=== PATIENT | male | born 1980 | race Caucasian/White ===

== ENCOUNTER 2019-02-09 10:10 | Emergency (ER) | payer MEDICARE, MEDICAID ==
--- OUTSIDE RECORDS SUMMARY | 2019-02-09 11:25 | XMS REPORT | Continuity of Care Document ---
:1980 External Reference #:[id number] Author Name Kayleigh Wallace Care Team Providers Name Role Phone Max Riggs MD Primary Care Physician Unavailable Payers Date Identification Numbers Payment Provider Subscriber Policy Number: [id number] Medicare Fareed [place] Name: Medicare [address] PayID: [id number] [place] [address] Policy Number: [id number] Medicaid Fareed [place] Group Name: 1 1 [address] PayID: [id number] [place] [address] Effective: 1999 Policy Number: [id number] Medicare Fareed [place] Expires: 2018 Group Name: Medicare [address] PayID: [id number] [facility] [place] [address] Problems Active Problems Provider Date Epilepsy Mariaelena Abad M.D. Onset: 04/16/2016 Cerebral palsy Mariaelena Abad M.D. Onset: 04/16/2016 Hypoglycemia Onset: 04/11/2018 Nocturnal enuresis Onset: 04/11/2018 Mental retardation Onset: 04/21/2014 Anxiety state Onset: 04/21/2014 Osteoporosis Onset: 09/24/2011 Seizure Onset: 09/24/2011 Dysphagia Onset: 09/24/2011 Social History Type Date Description Comments Sex Unknown Lives With [facility] Residence ETOH Use Never used alcohol Tobacco Use Reviewed: 06/07/16 Patient has never smoked Recreational Drug Use Never Used Drugs Smoking Status Reviewed: 01/14/19 Patient has never smoked Allergies, Adverse Reactions, Alerts Active Allergies Reaction Severity Comments Date NKDA 04/16/2016 Chocolate 08/08/2018 Medications Active Medications SIG Qnty Indications Ordering Provider Date Anusol-HC apply to affected 60gm Max 12/30/2018 2.5% Cream areas 2-4 times MD Keely daily A & D Zinc Oxide apply to 42.500gm Max 12/30/2018 irritated MD Keely Cream buttocks daily and as needed Flublok Quadrivalent please administer 1units Max 05/21/2018 flu vaccine MD Keely 0.5ml Soln Prefill Syringe Divalproex Sodium 1 by mouth at 30tabs [facility], 01/13/2018 night in addition M.D. 250mg Tablets DR to 500mg Carbidopa-Levodopa 1 by mouth four 120tabs [facility], 04/30/2017 times a day N.P. 25-100mg Tablets Ativan 1 tabs 1 hr 6tabs F41.9 Max 08/08/2015 0.5mg Tablets before the dental MD Keely appt then 1 tabs just before the procedure if needed Prevident 5000 Plus use daily 1units Amx 12/30/2013 MD Keely 1.1% Cream Lamictal 1 tab by mouth 90tabs [facility], 09/24/2011 100mg every morning : 2 M.D. Tablets tab by mouth every night at bedtime Oscal 500/200 D-3 1 po tid 90tabs Max 09/24/2011 MD Keely [id number] Tablets Selsun Blue Dry twice weekly Unknown Scalp 1% Shampoo Mylanta every 4 hours as Unknown needed [id number] Suspension Lamotrigine 1 in in the 90tabs [facility], 100mg morning and 2 at M.D. Tablets hs. Miralax 17 gm every day Unknown [id number] Packet as needed Guaifenesin 5 milliliters by Unknown 100mg/5ML mouth every 4 Liquid hours as needed for cough Acetaminophen 2 tablets by Unknown 325mg mouth every 6 Tablets hours as needed for pain/fever Divalproex Sodium 1 by mouth in in 60tabs [facility], the morning and [address] in at night Oysco 500 1 tab tid Unknown 500mg Tablets Multi For Him once a day Unknown Capsules Colace 2 daily Unknown 100mg Capsules History Medications Azithromycin 2 now and 1 6tabs 465.9 Max Riggs 08/17/2014 - 250mg daily x 4 days 09/22/2014 Tablets Azithromycin 2 now and 1 6tabs 482.9 Max Riggs, 03/03/2013 - 250mg daily x 4 days 04/15/2013 Tablets Ativan 1 tabs 1 hr 6tabs 300.00 Max Riggs 07/21/2012 - 0.5mg before the 05/30/2015 Tablets dental appt then 1 tabs just before the procedure if needed Ativan 2 tabs 1 hour 3tabs Max Riggs 12/12/2011 - 0.5mg before appt, 05/30/2015 Tablets then 1 tab 1/2 hr befor appt Prevident 5000 use as directed Max Riggs 09/24/2011 - Booster 09/22/2014 1.1% Paste Sinemet 1 po tid Max Riggs 09/24/2011 - 25-100mg 05/30/2015 Tablets Carbidopa-Levodopa 1 by mouth 4 120tabs Mariaelena Abad, - ER times daily M.D. 04/30/2017 25-100mg Tablets ER Immunizations CPT Code Status Date Vaccine Lot # [id number] Given 06/28/2015 Tdap - Tetanus/Diptheria/Acellular Pertussis 26610 Given 05/20/2014 Influenza Virus 3Yrs & Over 02697 Given 04/15/2013 Influenza Virus 3Yrs & Over 31847 Given 03/31/2012 Influenza Virus 3Yrs & Over 84215 Given 05/24/2010 Influenza Virus 3Yrs & Over 88986 Given 05/10/2009 Influenza Virus 3Yrs & Over 68657 Given 09/21/2008 Hepatitis B Julissa Adoles For Intramuscular Use 16878 Given 05/17/2008 Influenza Virus 3Yrs & Over 72298 Given 03/11/2008 Hepatitis B Julissa Adoles For Intramuscular Use 54387 Given 02/10/2008 Hepatitis B Julissa Adoles For Intramuscular Use 71655 Given 05/26/2007 Influenza Virus 3Yrs & Over 99473 Given 06/26/2005 Tetanus And Diptheria (Td) For Adult Use Preservative Free Vital Signs Date Vital Result Comment 01/14/2019 9:23am Height 69 inches 5'9" Weight 171.56 lb BP Systolic 104 mmHg BP Diastolic 68 mmHg BMI (Body Mass Index) 25.3 kg/m2 12/30/2018 9:43am Weight 172.00 lb BP Systolic 102 mmHg BP Diastolic 60 mmHg 07/01/2018 10:12am Height 69 inches Weight 174.00 lb BP Systolic 100 mmHg BP Diastolic 70 mmHg BMI (Body Mass Index) 25.7 kg/m2 01/08/2018 9:20am Height 69 inches 5'9" Weight 163.12 lb Heart Rate 87 /min BP Systolic Sitting 114 mmHg BP Diastolic Sitting 70 mmHg Respiratory Rate 18 /min O2 % BldC Oximetry 99 % BMI (Body Mass Index) 24.1 kg/m2 11/28/2017 2:45pm Weight 164.00 lb 11/28/2017 2:52pm Weight 169.00 lb BP Systolic 130 mmHg BP Diastolic 70 mmHg 10/17/2017 4:42pm Weight 157.00 lb BP Systolic 108 mmHg BP Diastolic 78 mmHg 09/25/2017 9:40am Weight 154.00 lb BP Systolic 108 mmHg BP Diastolic 80 mmHg 06/25/2017 9:19am Height 71 inches Weight 150.00 lb Heart Rate 72 /min BP Systolic 102 mmHg BP Diastolic 72 mmHg Respiratory Rate 16 /min BMI (Body Mass Index) 20.9 kg/m2 06/14/2017 11:25am Weight 150.00 lb Body Temperature 97.0 F 04/10/2017 11:09am Weight 150.00 lb BP Systolic 110 mmHg BP Diastolic 70 mmHg 02/19/2017 10:02am Weight 151.00 lb BP Systolic 104 mmHg BP Diastolic 70 mmHg 11/08/2016 11:41am Weight 149.00 lb BP Systolic 100 mmHg BP Diastolic 70 mmHg 11/01/2016 11:36am Weight 150.00 lb BP Systolic 108 mmHg BP Diastolic 78 mmHg 10/15/2016 11:02am Height 69 inches 5'9" Weight 139.00 lb Heart Rate 89 /min BP Systolic Sitting 122 mmHg BP Diastolic Sitting 62 mmHg Respiratory Rate 18 /min Pain Level 0 BMI (Body Mass Index) 20.5 kg/m2 06/07/2016 3:58pm Height 71.50 inches Weight 141.00 lb Heart Rate 56 /min BP Systolic 90 mmHg BP Diastolic 70 mmHg Respiratory Rate 16 /min BMI (Body Mass Index) 19.4 kg/m2 05/03/2016 3:12pm Height 71.50 inches Weight 142.00 lb BP Systolic 100 mmHg BP Diastolic 70 mmHg BMI (Body Mass Index) 19.5 kg/m2 04/16/2016 10:27am Height 69 inches 5'9" Weight 134.00 lb Heart Rate 82 /min manual BP Systolic Sitting 124 mmHg BP Diastolic Sitting 82 mmHg BMI (Body Mass Index) 19.8 kg/m2 11/30/2015 3:11pm Weight 139.50 lb BP Systolic 100 mmHg BP Diastolic 70 mmHg 10/27/2015 3:01pm Weight 134.00 lb BP Systolic 90 mmHg BP Diastolic 68 mmHg 06/28/2015 2:48pm Weight 130.00 lb BP Systolic 100 mmHg BP Diastolic 72 mmHg 05/30/2015 1:34pm Weight 133.00 lb 05/10/2015 10:58am Weight 131.00 lb BP Systolic 96 mmHg BP Diastolic 80 mmHg 04/25/2015 3:19pm Height 71.75 inches Weight 130.50 lb Heart Rate 76 /min BP Systolic 90 mmHg BP Diastolic 66 mmHg Respiratory Rate 16 /min BMI (Body Mass Index) 17.8 kg/m2 01/27/2015 1:12pm Weight 130.00 lb BP Systolic 98 mmHg BP Diastolic 66 mmHg 10/27/2014 4:25pm Weight 139.00 lb BP Systolic 102 mmHg BP Diastolic 70 mmHg 09/22/2014 3:55pm Weight 144.00 lb BP Systolic 90 mmHg BP Diastolic 70 mmHg 08/17/2014 3:37pm Weight 142.00 lb BP Systolic 100 mmHg BP Diastolic 74 mmHg Body Temperature 99.7 F 04/21/2014 3:30pm Height 71 inches Weight 139.00 lb Heart Rate 64 /min BP Systolic 100 mmHg BP Diastolic 74 mmHg Respiratory Rate 16 /min BMI (Body Mass Index) 19.4 kg/m2 09/07/2013 3:06pm Weight 135.00 lb BP Systolic 96 mmHg BP Diastolic 70 mmHg 04/15/2013 4:19pm Height 70.25 inches Weight 136.00 lb Heart Rate 68 /min BP Systolic 100 mmHg BP Diastolic 70 mmHg Respiratory Rate 14 /min Body Temperature 97.7 F BMI (Body Mass Index) 19.4 kg/m2 03/10/2013 4:07pm Weight 133.00 lb BP Systolic 100 mmHg BP Diastolic 70 mmHg 03/03/2013 4:47pm Weight 133.50 lb BP Systolic 110 mmHg BP Diastolic 80 mmHg 02/25/2013 10:01am Weight 136.00 lb BP Systolic 100 mmHg BP Diastolic 88 mmHg 11/25/2012 2:06pm Weight 138.00 lb BP Systolic 98 mmHg BP Diastolic 75 mmHg 09/10/2012 2:06pm Weight 141.00 lb BP Systolic 104 mmHg BP Diastolic 60 mmHg 04/14/2012 2:21pm Height 70.25 inches Weight 141.00 lb Heart Rate 80 /min BP Systolic 110 mmHg BP Diastolic 70 mmHg Respiratory Rate 14 /min Body Temperature 97.2 F BMI (Body Mass Index) 20.1 kg/m2 01/28/2012 2:57pm Height 69 inches Weight 143.50 lb BP Systolic 100 mmHg BP Diastolic 64 mmHg BMI (Body Mass Index) 21.2 kg/m2 09/24/2011 1:46pm Height 69 inches Weight 142.00 lb BP Systolic 106 mmHg BP Diastolic 64 mmHg BMI (Body Mass Index) 21.0 kg/m2 Results Test Date Facility Test Result H/L Range Note Laboratory test 04/11/2017 N2N/CCD Import Aldosterone 9.4 ng/dL 0-30 1 , 2 finding Glycohemoglobin (A1c) 5.2 % 4.2-6.3 3 Luteinizing Hormone 5.2 mIU/mL 1.2-10.6 Reflex add FT3? Y Reflex add FT4? Y Thyroid Stim Hormone 2.01 uIU/mL 0.3-4.2 eAG 103 mg/dL PTH Intact W/Calcium 04/11/2017 N2N/CCD Import . (See Note) 4 Calcium 10.2 mg/dL 8.7-10.2 PTH,Intact 32 pg/mL 15-65 Imaging finding 11/08/2016 N2N/CCD Import Bone Density <pending> Laboratory test 11/05/2016 N2N/CCD Import Ferritin 122 ng/mL 26-388 5 finding Vitamin B12 And 11/05/2016 N2N/CCD Import Folic Acid 41.4 ng/mL High 3.1- 17.5 Folate Vitamin B12 1147 pg/mL High 193-986 CBS W/Automated Diff 11/05/2016 N2N/CCD Import Bas% 0.2 % 0-1.1 Baso # 0.01 K/uL 0-0.1 Eo% 0.9 % 0-6.6 Eos # 0.04 K/uL 0-0.5 Hematocrit 41.6 % 38-48 Hemoglobin 13.8 gm/dL 12.8-17 Lymph # 2.31 K/uL 1-4 Lymph % 49.1 % High 20-42 Mean Cell Volume 102.2 fl High 80-96 Mean Corpuscular HGB 33.9 pg High 27-33 Mean Corpuscular HGB Conc 33.2 g/dL 31.7-36 Mean Platelet Volume 9.7 fL 6.6-10.6 [place] # 0.46 K/uL 0-0.8 [place] % 9.8 % 0-10 Neut# 1.88 K/uL 1.8-7 Neut% 40.0 % 33-73 Platelet Count 164 K/uL 150-400 Red Blood Count 4.07 M/uL Low 4.2-5.8 Red Cell Distri Width %CV 12.6 % 11.6-15.8 Red Cell Distri Width SD 46.6 fl 36-51 White Blood Count 4.7 K/uL 3.4-10.5 Comprehensive Metabolic Panel 11/05/2016 N2N/CCD Import Alb/Glob 0.9 ratio Albumin 3.8 g/dL 3.4-5 Alkaline Phosphatase 50 U/L 45-117 Anion Gap 9 mEq/L 8-16 BUN 20 mg/dL High 7-18 BUN/Creat 22.2 ratio Bilirubin,Total 0.3 mg/dL 0.2-1 Calcium 9.2 mg/dL 8.5-10.1 Carbon Dioxide 29 mmol/L 21-32 Chloride 102 mmol/L 98-107 Creatinine 0.9 mg/dL 0.6-1.3 Globulin 4.1 g/dL 1.9-4.3 Glom Filtration Rate, Estimate >60 mL/min Glucose 81 mg/dL 74-106 If >60 mL/min 6 Potassium 3.9 mmol/L 3.5-5.1 SGPT/Alt 28 U/L 12-78 Sgot/Ast 19 U/L 15-37 Sodium 140 mmol/L 136-145 Total Protein 7.9 g/dL 6.4-8.2 Iron-Tibc-%Sat 11/05/2016 N2N/CCD Import Serum Iron 106 g/dL 65-175 Total Iron Binding Capacity 337 g/dL 250-450 Transferrin %Saturation 31 % 12-57 CBC Auto Diff 10/15/2016 [facility] White Blood 6.2 10^3/uL N 3.5-10.[address] [place] [address] [phone] Red Blood Count 4.13 10^6/uL N 4.0-5.4 Hemoglobin 13.8 g/dL Low 14.0-18.0 Hematocrit 41 % Low 42-52 Mean Corpuscular Volume 100 fL High 80-94 Mean Corpuscular Hemoglobin 34 pg High 27-31 Mean Corpuscular HGB Conc 33 g/dL N 31-36 Red Cell Distribution Width 14 % N 10.5-15 Platelet Count 176 10^3/uL N 150-450 Mean Platelet Volume 9 um3 N 7.4-10.4 Abs Neutrophils 2.3 10^3/uL N 1.5-7.7 Abs Lymphocytes 3.3 10^3/uL N 1.0-4.8 Abs Monocytes 0.6 10^3/uL N 0-0.8 Abs Eosinophils 0 10^3/uL N 0-0.6 Abs Basophils 0 10^3/uL N 0-0.2 Abs Nucleated RBC 0.01 10^3/uL N Granulocyte % 36.8 % Low 38-83 Lymphocyte % 53.2 % High 25-47 Monocyte % 9.2 % High 1-9 Eosinophil % 0.6 % N 0-6 Basophil % 0.2 % N 0-2 Nucleated Red Blood Cells % 0.1 N Comp Metabolic Panel 10/15/2016 [facility] Sodium 136 mmol/L N 133-[address] [place] [address] [phone] Potassium 4.2 mmol/L N 3.5-5.0 Chloride 100 mmol/L Low 101-111 Co2 Carbon Dioxide 30 mmol/L N 22-32 Anion Gap 6 mmol/L N 2-11 Glucose 80 mg/dL N 70-100 Blood Urea Nitrogen 24 mg/dL N 6-24 Creatinine 0.76 mg/dL N 0.67-1.17 BUN/Creatinine Ratio 31.6 High 8-20 Calcium 10.4 mg/dL High 8.6-10.3 Total Protein 8.1 g/dL N 6.4-8.9 Albumin 4.8 g/dL N 3.2-5.2 Globulin 3.3 g/dL N 2-4 Albumin/Globulin Ratio 1.5 N 1-3 Total Bilirubin 0.30 mg/dL N 0.2-1.0 Alkaline Phosphatase 43 U/L N 34-104 Alt 11 U/L N 7-52 Ast 21 U/L N 13-39 Egfr Non- 115.4 N >60 Egfr 148.4 N >60 7 Laboratory test 05/03/2016 N2N/CCD Import Glucose,Bedside 103 mg/dL 70- 110 8 finding Comprehensive 05/03/2016 N2N/CCD Import Alb/Glob 0.9 ratio 9 Metabolic Panel Albumin 3.7 g/dL 3.4-5 Alkaline Phosphatase 50 U/L 45-117 Anion Gap 6 mEq/L Low 8-16 BUN 20 mg/dL High 7-18 BUN/Creat 22.2 ratio Bilirubin,Total 0.3 mg/dL 0.2-1 Calcium 9.0 mg/dL 8.5-10.1 Carbon Dioxide 29 mmol/L 21-32 Chloride 107 mmol/L 98-107 Creatinine 0.9 mg/dL 0.6-1.3 Globulin 3.9 g/dL 1.9-4.3 Glom Filtration Rate, Estimate >60 mL/min Glucose 59 mg/dL Low 74-106 If >60 mL/min 10 Is Patient Fasting? Unknown Potassium 4.0 mmol/L 3.5-5.1 Reflex add FT3? Y Reflex add FT4? Y SGPT/Alt 26 U/L 12-78 Sgot/Ast 11 U/L Low 15-37 11 Sodium 142 mmol/L 136-145 Total Protein 7.6 g/dL 6.4-8.2 Laboratory test finding 05/03/2016 N2N/CCD Import Aot Request Test(s) added 12 Tests to be added: tsh, reflex ft4 <See Note> 13 Laboratory test finding 05/03/2016 N2N/CCD Import CK 67 U/L 39-308 Is Patient Fasting? Unknown Reflex add FT3? Y Reflex add FT4? Y Thyroid Stim Hormone 1.44 uIU/mL 0.3-4.2 Troponin-I < 0.015 ng/mL 14 Valproic Acid 86.8 ug/mL 50-100 CBS W/Automated Diff 05/03/2016 N2N/CCD Import Bas% 0.2 % 0.1-1 Baso # 0.01 K/uL Low 0.1-0.2 Eo% 1.0 % 0-5 Eos # 0.04 K/uL 0-0.5 Hematocrit 40.9 % 38-48 Hemoglobin 13.3 gm/dL 12.8-17 Lymph # 1.77 K/uL Low 1.8-7 Lymph % 42.1 % 17-56 Mean Cell Volume 102.0 fl High 80-96 Mean Corpuscular HGB 33.2 pg High 27-33 Mean Corpuscular HGB Conc 32.5 g/dL 31.7-36 Mean Platelet Volume 10.5 fL 6.6-10.6 [place] # 0.66 K/uL 0-0.8 [place] % 15.7 % High 0-10 Neut# 1.72 K/uL Low 1.8-7 Neut% 41.0 % 33-73 Platelet Count 150 K/uL 150-400 Red Blood Count 4.01 M/uL Low 4.2-5.8 Red Cell Distri Width %CV 12.9 % 11.6-15.8 Red Cell Distri Width SD 47.6 fl 36-51 White Blood Count 4.2 K/uL 3.4-10.5 Valproic Acid,Free + 06/14/2015 N2N/CCD Import Free Valproic 8.6 ug/mL 4 -12 15 Total Valproic Acid (Depakote),S 84 ug/mL 50-100 16 Comprehensive Metabolic Panel 05/25/2015 N2N/CCD Import Alb/Glob 1.0 ratio Albumin 3.9 g/dL 3.4-5 Alkaline Phosphatase 55 U/L 45-117 Anion Gap 3 mEq/L Low 8-16 BUN 17 mg/dL 7-18 BUN/Creat 18.8 ratio Bilirubin,Total 0.3 mg/dL 0.2-1 Calcium 9.3 mg/dL 8.5-10.1 Carbon Dioxide 30 mmol/L 21-32 Chloride 107 mmol/L 98-107 Creatinine 0.9 mg/dL 0.6-1.3 Globulin 3.8 g/dL 1.9-4.3 Glom Filtration Rate, Estimate >60 mL/min Glucose 106 mg/dL 74-106 If >60 mL/min 17 Potassium 3.9 mmol/L 3.5-5.1 SGPT/Alt 23 U/L 12-78 Sgot/Ast 12 U/L Low 15-37 18 Sodium 140 mmol/L 136-145 Total Protein 7.7 g/dL 6.4-8.2 CBC W/Automated Diff 05/25/2015 N2N/CCD Import Bas% 0.1 % 0.1-1 Baso # 0.01 K/uL Low 0.1-0.2 Eo% 0.1 % 0-5 Eos # 0.01 K/uL 0-0.5 Hematocrit 38.8 % 38-48 Hemoglobin 12.9 gm/dL 12.8-17 Lymph # 1.74 K/uL Low 1.8-7 Lymph % 16.9 % Low 17-56 Mean Cell Volume 97.7 fl High 80-96 Mean Corpuscular HGB 32.5 pg 27-33 Mean Corpuscular HGB Conc 33.2 g/dL 31.7-36 Mean Platelet Volume 10.6 fL 6.6-10.6 [place] # 0.85 K/uL High 0-0.8 [place] % 8.2 % 0-10 Neut# 7.71 K/uL High 1.8-7 Neut% 74.7 % High 33-73 Platelet Count 189 K/uL 150-400 Red Blood Count 3.97 M/uL Low 4.2-5.8 Red Cell Distri Width %CV 12.7 % 11.6-15.8 Red Cell Distri Width SD 45.0 fl 36-51 White Blood Count 10.3 K/uL 3.4-10.5 Laboratory test finding 05/25/2015 N2N/CCD Import CK 83 U/L 39-308 Magnesium 1.9 mg/dL 1.8-2.4 Phosphorous 1.7 mg/dL Low 2.5-4 Valproic Acid 48.5 ug/mL Low 50-100 Laboratory test 11/28/2013 N2N/CCD Import Lamotrigine 15.6 ug/mL 2-20 19 finding (Lamictal), Serum Valproic Acid 60.7 ug/mL 50-100 CBC 11/28/2013 N2N/CCD Import Hematocrit 41.9 % 38-48 Hemoglobin 14.0 gm/dL 12.8-17 Mean Cell Volume 99.3 fl High 80-96 Mean Corpuscular HGB 33.2 pg High 27-33 Mean Corpuscular HGB Conc 33.4 g/dL 31.7-36 Mean Platelet Volume 10.1 fL 6.6-10.6 Platelet Count 202 K/uL 150-400 Red Blood Count 4.22 M/uL 4.2-5.8 Red Cell Distri Width %CV 12.8 % 11.6-15.8 White Blood Count 5.7 K/uL 3.4-10.5 Liver Function Tests 11/28/2013 N2N/CCD Import Alb/Glob 1.0 ratio Albumin 4.1 g/dL 3.5-5 Alkaline Phosphatase 54 U/L 50-136 Bilirubin,Direct < 0.1 mg/dL Low 0.1-0.4 Bilirubin,Indirect 0.2 mg/dL 0-0.9 Bilirubin,Total 0.3 mg/dL 0.2-1.2 Globulin 4.2 g/dL 1.9-4.3 SGPT/Alt 24 U/L Low 30-65 Sgot/Ast 10 U/L Low 16-40 Total Protein 8.3 g/dL High 6.3-8 Laboratory test 05/01/2013 N2N/[employer] Import Lamotrigine 19.5 ug/mL 2-20 20 finding (Lamictal), Serum Valproic Acid 75.2 ug/mL 50-100 Laboratory test 03/26/2013 N2N/CCD Import Lamotrigine 19.4 ug/mL 2-20 21 finding (Lamictal), Serum Valproic Acid 111.1 ug/mL High 50-100 CBC 03/26/2013 N2N/CCD Import Hematocrit 44.2 % 38-48 Hemoglobin 14.4 gm/dL 12.8-17 Mean Cell Volume 102.8 fl High 80-96 Mean Corpuscular HGB 33.5 pg High 27-33 Mean Corpuscular HGB Conc 32.6 g/dL 31.7-36 Mean Platelet Volume 11.1 fL High 6.6-10.6 Platelet Count 153 K/uL 150-400 Red Blood Count 4.30 M/uL 4.2-5.8 Red Cell Distri Width %CV 13.1 % 11.6-15.8 White Blood Count 5.2 K/uL 3.4-10.5 Liver Function Tests 03/26/2013 N2N/CCD Import Alb/Glob 0.9 ratio Albumin 4.1 g/dL 3.5-5 Alkaline Phosphatase 55 U/L 50-136 Bilirubin,Direct 0.1 mg/dL 0.1-0.4 Bilirubin,Indirect 0.4 mg/dL 0-0.9 Bilirubin,Total 0.5 mg/dL 0.2-1.2 Globulin 4.7 g/dL High 1.9-4.3 SGPT/Alt 24 U/L Low 30-65 Sgot/Ast 14 U/L Low 16-40 Total Protein 8.8 g/dL High 6.3-8 CBC W/Automated Diff 10/20/2012 N2N/CCD Import Bas% 0.4 % 0.1-1 Baso # 0.02 K/uL Low 0.1-0.2 Eo% 1.1 % 0-5 Eos # 0.06 K/uL 0-0.5 Hematocrit 41.0 % 38-48 Hemoglobin 14.4 gm/dL 12.8-17 Lymph # 3.38 K/uL 1.2-4 Lymph % 61.2 % High 17-56 Mean Cell Volume 99.3 fl High 80-96 Mean Corpuscular HGB 34.9 pg High 27-33 Mean Corpuscular HGB Conc 35.1 g/dL 31.7-36 Mean Platelet Volume 10.0 fL 6.6-10.6 [place] # 0.47 K/uL 0-0.6 [place] % 8.5 % 0-10 Neut# 1.59 K/uL Low 1.8-7 Neut% 28.8 % Low 33-73 Platelet Count 177 K/uL 150-400 Red Blood Count 4.13 M/uL Low 4.2-5.8 Red Cell Distri Width %CV 13.0 % 11.6-15.8 Red Cell Distri Width SD 47.4 fl 36-51 White Blood Count 5.5 K/uL 3.4-10.5 Comprehensive Metabolic Panel 10/20/2012 N2N/CCD Import Alb/Glob 1.0 ratio Albumin 4.2 g/dL 3.5-5 Alkaline Phosphatase 61 U/L 50-136 Anion Gap 11 mEq/L 8-16 BUN 27 mg/dL High 5-23 BUN/Creat 30.0 ratio Bilirubin,Total 0.6 mg/dL 0.2-1.2 Calcium 9.9 mg/dL 8.5-10.1 Carbon Dioxide 32 mEq/L High 18-29 Chloride 102 mmol/L 98-107 Creatinine 0.9 mg/dL 0.5-1.4 Globulin 4.2 g/dL 1.9-4.3 Glom Filtration Rate, Estimate >60 mL/min Glucose 80 mg/dL 76-115 If >60 mL/min 22 Potassium 4.3 mmol/L 3.5-5.1 SGPT/Alt 27 U/L Low 30-65 Sgot/Ast 16 U/L 16-40 Sodium 141 mmol/L 136-145 Total Protein 8.4 g/dL High 6.3-8 LDL Cholesterol Profile 10/20/2012 N2N/CCD Import Cholesterol 158 mg/dL 120-200 HDL Cholesterol 70 mg/dL 29-83 LDL-Cholesterol 73 mg/dL 62-185 Triglycerides 75 mg/dL 16-231 Valproic Acid,Free + 10/20/2012 N2N/CCD Import Free Valproic 9.5 ug/mL 4 -12 23 Total Valproic Acid (Depakote),S 101 ug/mL High 50-100 24 Imaging finding 10/16/2011 N2N/CCD Import Dexa Scan, Axial Skeleton, < pending> One Or More Sites 1 E16.2 2 This test was developed and its performance characteristics determined by [facility]. It has not been cleared or approved by the Food and Drug Administration. 3 Elevated levels of HbA1c suggest the need for more aggressive treatment of glycemia. The [place] [employer] recommends that a primary goal of therapy should be a HbA1c of <7% and that physicians should re-evaluate the treatment regimen in patients with HbA1c values consistently >8%. 4 Interpretation Intact PTH Calcium (pg/mL) (mg/dL) Normal 15 - 65 8.6 - 10.2 Primary Hyperparathyroidism >65 >10.2 Secondary Hyperparathyroidism >65 <10.2 Non-Parathyroid Hypercalcemia <65 >10.2 Hypoparathyroidism <15 < 8.6 Non-Parathyroid Hypocalcemia 15 - 65 < 8.6 Performed at: RN - [facility] [address] [id number] Information Technology Intern: Marjorie Menchaca MD, Phone: [phone] Performed at: - [facility] [address] [id number] Information Technology Intern: Kyle Gómez MD, Phone: [phone] 5 M81.8 OSTEOPEROSIS W/OUT CURRENT FRACTURE 6 Note: Persistent reduction for 3 months or more in an eGFR <60 mL/min/1.73 m2 defines CKD. Patients with eGFR values >/=60 mL/min/1.73 m2 may also have CKD if evidence of persistent proteinuria is present. The original MDRD equation for estimated GFR is not valid for patients less than 18 years of age. Additional information may be found at www.kdoqi.org. 7 Because ethnic data is not always readily available, this report includes an eGFR for both -Americans and non- Americans. The National Kidney Disease Education Program (NKDEP) does not endorse the use of the MDRD equation for patients that are not between the ages of 18 and 70, are , have extremes of body size, muscle mass, or nutritional status, or are non- or non-. According to the National Kidney Foundation, irrespective of diagnosis, the stage of the disease is based on the level of kidney function: Stage Description GFR(mL/min/1.73 m(2)) 1 Kidney damage with normal or decreased GFR 90 2 Kidney damage with mild decrease in GFR 60-89 3 Moderate decrease in GFR 30-59 4 Severe decrease in GFR 15-29 5 Kidney failure <15 (or dialysis) 8 Charting This Result Notify Physician 9 LOW TEMP,CP,LATHARGIC 10 Note: Persistent reduction for 3 months or more in an eGFR <60 mL/min/1.73 m2 defines CKD. Patients with eGFR values >/=60 mL/min/1.73 m2 may also have CKD if evidence of persistent proteinuria is present. The original MDRD equation for estimated GFR is not valid for patients less than 18 years of age. Additional information may be found at www.kdoqi.org. 11 Values below the stated reference ranges of AST and ALT can be seen in normal populations. Clinical correlation is suggested. 12 Tests: tsh, reflex ft4 and t3 Instructions: 13 tsh, reflex ft4 and t3 14 0.0 - 0.045 ng/mL: Normal 0.046 - 0.5 ng/mL: Suggestive 0.6 - 1.5 ng/mL: Consistent 15 Detection Limit=0.5 16 Detection Limit=4 <4 indicates None Detected Toxicity may occur at levels of 100-500. Measurements of free unbound valproic acid may improve the assess- ment of clinical response. Performed at: - [facility] [address] [id number] Information Technology Intern: Marjorie Menchaca MD, Phone: [phone] Performed at: [address] [id number] Information Technology Intern: Kyle Gómez MD, Phone: [phone] 17 Note: Persistent reduction for 3 months or more in an eGFR <60 mL/min/1.73 m2 defines CKD. Patients with eGFR values >/=60 mL/min/1.73 m2 may also have CKD if evidence of persistent proteinuria is present. The original MDRD equation for estimated GFR is not valid for patients less than 18 years of age. Additional information may be found at www.kdoqi.org. 18 Values below the stated reference ranges of AST and ALT can be seen in normal populations. Clinical correlation is suggested. 19 Detection Limit=1.0 Performed at: [facility] [address] [id number] Information Technology Intern: Kyle Gómez MD, Phone: [phone] 20 Detection Limit=1.0 Performed at: [address] [id number] Information Technology Intern: Kyle Gómez MD, Phone: [phone] 21 Detection Limit=1.0 Performed at: [address] [id number] Information Technology Intern: Kyle Gómez MD, Phone: [phone] 22 Note: Persistent reduction for 3 months or more in an eGFR <60 mL/min/1.73 m2 defines CKD. Patients with eGFR values >/=60 mL/min/1.73 m2 may also have CKD if evidence of persistent proteinuria is present. The original MDRD equation for estimated GFR is not valid for patients less than 18 years of age. Additional information may be found at www.kdoqi.org. 23 Detection Limit=0.5 24 Detection Limit=4 <4 indicates None Detected Toxicity may occur at levels of 100-500. Measurements of free unbound valproic acid may improve the assess- ment of clinical response. Patient drug level exceeds published reference range. Evaluate clinically for signs of potential toxicity. Performed at: [facility] [id number] Information Technology Intern: Marjorie Menchaca MD, Phone: [phone] Performed at: [address] [id number] Information Technology Intern: Kyle Gómez MD, Phone: [phone] Procedures Date Code Description Status 06/14/2017 30261 Remove Impacted Cerumen Completed 04/24/2012 79578 Remove Impacted Cerumen Completed 03/21/2011 27623 Pure Tone-Air Condition Only Completed 08/23/2010 58612 Visual funct screen test, automated Completed 08/23/2010 85031 EKG Tracing & Interpretation Completed 02/07/2009 30548 Screening Vision Test Completed 02/07/2009 88215 Pure Tone-Air Condition Only Completed 12/10/2007 84680 Remove Impacted Cerumen Completed Encounters Type Date Location Provider Dx Diagnosis Office Visit 12/30/2018 [facility] Primary [facility] Max F41.9 Anxiety disorder, 9:30a MD Keely unspecified Office Visit 01/08/2018 [place]/Nathan Crow G80.9 Cerebral palsy, 9:30a Neurologic Serv Agustín Milian unspecified [facility] G40.909 Epilepsy, unsp, not intractable, without status epilepticus Office Visit 10/15/2016 Kassie [email or web address] Cerebral palsy, 10:45a Neurologic Serv Of Maicol Abad unspecified Neurourologist G40.909 Epilepsy, unsp, not intractable, without status epilepticus Office Visit 04/16/2016 Kassie Weeks80.9 Cerebral palsy, 10:15a Neurologic Serv Of Maicol Abad unspecified Neurourologist G40.909 Epilepsy, unsp, not intractable, without status epilepticus Z79.899 Other assisted (current) drug therapy Plan of Treatment Future Appointment(s):01/20/2020 9:15 am - James Crow M.D. at [facility] Neurologic Serv [facility]07/06/2019 10:00 am - Max Riggs MD at [facility] Primary [facility]01/14/2019 - James Crow M.D.G80.9 Cerebral palsy, unspecifiedFollow up:Follow up in 1 yearG40.909 Epilepsy, unspecified, not intractable, without status [id number] Anxiety disorder, unspecified
[2019-02-09 11:34] VITALS: BP 119/70
--- NOTE | 2019-02-09 11:53 | UC ---
Lower Extremity/Ankle HPI - HPI Summary HPI Summary: Patient presents to urgent care with management long term. Patient with cerebral palsy and decreased verbal interaction. Patient noted last night to have bruising of his right second toe. No known trauma. Patient last night reported hurt. Patient states today he is a little bit of discomfort was noted to be favoring. No analgesia given. No known trauma. No ankle knee pain no fevers no chills no open wounds no bleeding no other recent injuries. Patient' s medication list reviewed. Patient does have Tylenol when necessary but has not been administered - History of Current Complaint Chief Complaint: UCGeneralIllness Stated Complaint: 2ND TOE RT FOOT COMPLAINT Time Seen by Provider: 02/09/19 11:45 Hx Obtained From: Patient Pain Intensity: 0 - Allergies/Home Medications Allergies/Adverse Reactions: Allergies Allergy/AdvReac Type Severity Reaction Status Date / Time No Known Allergies Allergy Verified 02/09/19 11:34 Home Medications: Home Medications Carbidopa/Levodopa ER 25/100 [Carbidopa-Levo ER 25-100 Tab] 1 tab PO QID [History Confirmed 02/09/19] Divalproex ER TAB(*) [Depakote ER TAB(*)] 1 tab PO BEDTIME 02/09/19 [History Confirmed 02/09/19] Docusate CAP* [Colace Cap*] 2 tab PO BEDTIME 02/09/19 [History Confirmed ] Multivitamin [Multivitamins] 1 tab PO DAILY 02/09/19 [History Confirmed 02/09/19 ] lamoTRIgine TAB(*) [Lamictal TAB(*)] 2 tab PO BEDTIME 02/09/19 [History Confirmed 02/09/19] PMH/Surg Hx/FS Hx/Imm Hx Previously Healthy: Yes Neurological History: Seizures, Other - CP - Surgical History Surgical History: None - Family History Known Family History: Positive: Non-Contributory - Social History Occupation: Disabled Lives: Alf Alcohol Use: None Substance Use Type: None Smoking Status (MU): Never Smoked Tobacco Review of Systems All Other Systems Reviewed And Are Negative: Yes Constitutional: Positive: Negative Skin: Positive: Bruising Musculoskeletal: Positive: Other: - right 2nd toe Is Patient Immunocompromised?: No Physical Exam - Summary Physical Exam Summary: Vital Signs Reviewed: Yes Alert, little verbal communications Eyes: Conjunctiva Clear ENT: Hearing grossly normal neck: supple Respiratory: Positive: No respiratory distress, No accessory muscle use Cardiovascular: skin color reflect adequate perfusion 2+ DP, PT Musculoskeletal Exam: + SLE+ flex/ext knee, ankle 2nd toe - diffusely ecchymosis - mild TTP distal toe no crepitus no pain with palp MT no pain, swelling foot Neurological: Positive: Alert, ambulatory with slight favorint Psychological: Positive: Normal Response To proivder Skin: Positive: no rash, no ecchymosis Triage Information Reviewed: Yes Vital Signs: Initial Vital Signs Temp 98 F 02/09/19 11:27 Pulse 89 02/09/19 11:27 Resp 16 02/09/19 11:27 BP 119/70 02/09/19 11:27 Pulse Ox 98 02/09/19 11:27 Lower Extremity Course/Dx - Course Course Of Treatment: Pt with minimal verbal communication skills presents with ecchymosis and discomfort left second toe - unknown trauma no open wound imaging non-displaced fracture no open wound alyse tape post op shoe f/u with PCP or Dr. Reyes pt has Tylenol PRN ice elevate facility paperwork reviewed - Differential Dx/Diagnosis Provider Diagnosis: Nondisplaced fracture of distal phalanx of lesser toe Discharge - Sign-Out/Discharge Documenting (check all that apply): Patient Departure All imaging exams completed and their final reports reviewed: No Studies - Discharge Plan Condition: Stable Disposition: HOME Patient Education Materials: Toe Fracture (ED) Referrals: Ricardo Reyes MD [Medical Doctor] - Max Riggs MD [Primary Care Provider] - Additional Instructions: - okay to take tylenol previously written as needed for pain - Alyse tape toes for comfort and support - wear shoe with hard sole support - okay to apply ice (wrapped in a towel) 20 minutes at a time for pain - elevate your foot to help with swelling and pain - Contact your primary provider or the orthopedic provider for follow-up - Billing Disposition and Condition Condition: STABLE Disposition: Home
== END 2019-02-09 12:26 | disposition home or self-care (01) ==
LOC: UCCORT 10:10
DX: S90.121A Contusion of right lesser toe(s) without damage to nail, initial encounter (principal); X58.XXXA Exposure to other specified factors, initial encounter; Y92.199 Unspecified place in other specified residential institution as the place of occurrence of the external cause; G80.9 Cerebral palsy, unspecified; R56.9 Unspecified convulsions
CPT/HCPCS: 99212; G0463

== ENCOUNTER 2019-07-17 10:18 | Emergency (ER) | payer MEDICARE, MEDICAID ==
[2019-07-17 10:41] VITALS: BP 121/54
--- NOTE | 2019-07-17 11:58 | UC ---
Complaint Male HPI - HPI Summary HPI Summary: Pt is accompanied by [facility] support person. Support person states that pt has been urinating more frequently and having incontinent occurrences more frequently over the past two days. - History of Current Complaint Chief Complaint: UCGU Stated Complaint: URINARY Time Seen by Provider: 07/17/19 10:43 Hx Obtained From: Family/Secondary History Teacher Hx From Patient Unobtainable Due To: Other - cognitive disability Onset/Duration: Sudden Onset Timing: Intermittent Severity Initially: Mild Severity Currently: Mild Pain Intensity: 0 Location: Other - unable to describe Aggravating Factor(s): Other - unable to describe Associated Signs And Symptoms: Positive: Negative - Risk Factors Testicular Torsion: Negative - Allergies/Home Medications Allergies/Adverse Reactions: Allergies Allergy/AdvReac Type Severity Reaction Status Date / Time No Known Allergies Allergy Verified 07/17/19 10:35 Home Medications: Home Medications Acetaminophen TAB* [Tylenol TAB*] 1 tab Q6HR PRN 07/17/19 [History Confirmed ] Calcium Carbonate/Vitamin D3 [Calcium 500 + Vit D Caplet] 1 tab DAILY 07/17/19 [ History Confirmed 07/17/19] Divalproex ER TAB(*) [Depakote ER TAB(*)] 1 tab BID 07/17/19 [History Confirmed 07/17/19] PMH/Surg Hx/FS Hx/Imm Hx Previously Healthy: Yes - Surgical History Surgical History: None - Family History Known Family History: Positive: Non-Contributory - Social History Occupation: Disabled Lives: Prison Alcohol Use: None Substance Use Type: None Smoking Status (MU): Never Smoked Tobacco Have You Smoked in the Last Year: No - Immunization History Vaccination Up to Date: Yes Review of Systems All Other Systems Reviewed And Are Negative: Yes Constitutional: Positive: Negative Skin: Positive: Negative Eyes: Positive: Negative ENT: Positive: Negative Respiratory: Positive: Negative Cardiovascular: Positive: Negative Gastrointestinal: Positive: Negative Genitourinary: Positive: Frequency, Urgency, Other - incontinence Motor: Positive: Negative Neurovascular: Positive: Negative Musculoskeletal: Positive: Negative Neurological: Positive: Negative Psychological: Positive: Negative Is Patient Immunocompromised?: No Physical Exam Triage Information Reviewed: Yes Appearance: Well-Appearing Vital Signs: Initial Vital Signs Temp 97.7 F 07/17/19 10:35 Resp 16 07/17/19 10:35 BP 121/54 07/17/19 10:35 Vital Signs Reviewed: Yes Eye Exam: Normal ENT: Positive: Hearing grossly normal Dental Exam: Normal Neck exam: Normal Respiratory Exam: Normal Cardiovascular Exam: Normal Abdominal Exam: Normal Abdomen Description: Positive: Nontender Musculoskeletal Exam: Normal Neurological Exam: Normal Psychological Exam: Normal Skin Exam: Normal Complaint Male Course/Dx - Differential Dx/Diagnosis Differential Diagnosis/HQI/PQRI: Urinary Tract Infection Provider Diagnosis: UTI (urinary tract infection) Discharge ED - Sign-Out/Discharge Documenting (check all that apply): Patient Departure All imaging exams completed and their final reports reviewed: No Studies - Discharge Plan Condition: Stable Disposition: HOME Prescriptions: Cephalexin CAP* [Keflex 500 CAP*] 500 mg PO Q8H #21 cap Patient Education Materials: Urinary Tract Infection in Men (ED) Referrals: Max Riggs MD [Primary Care Provider] - If Needed - Billing Disposition and Condition Condition: STABLE Disposition: Home
== END 2019-07-17 12:09 | disposition home or self-care (01) ==
LOC: UCCORT 10:18
DX: N39.0 Urinary tract infection, site not specified (principal)
CPT/HCPCS: 81003; 87077; 87086; 87186; 99212; G0463